=== PATIENT | female | born 1965 | race Caucasian/White ===

== ENCOUNTER → 2016-06-29 | Emergency (ER) | payer BC, SELFPAY ==
[~2016-06-29] VITALS: Ht 160 cm; Wt 97.5 kg
[~2016-06-29] MED LIST: CARA1TAB2 PO; IMIT50TA PO; ISOVUE-370 76% 100ML VIAL (Q9967) As Ordered ONE; KETOROLAC 30 MG/ML VIAL (J1885) IV ONE; MORPHINE 4 MG/ML 1ML SYRINGE IV ONE; ONDANSETRON 4MG/2ML VIAL (J2405) IV ONE; PRIL20CA9 PO; VALI5TAB PO; VALT500T PO
[2016-06-29 17:43] LABS: BASO % 0.2 % (0.0-1.0); EOS # 0.3 K/mm3 (0.0-0.50); EOS % 4.1 % (0.0-3.0); LARGE UNSTAINED CELL # 0.2 K/mm3 (0.0-0.4); LYMPH # 2.7 K/mm3 (1.5-4.5); LYMPH % 35.1 % (24.0-44.0); MEAN CORPUSCULAR HGB CONC 33.6 g/dl (32.0-36.5); MEAN CORPUSCULAR VOLUME 86.3 fl (80.0-96.0); MONO # 0.5 K/mm3 (0.0-0.8); MONO % 6.7 % (0.0-5.0); NEUTROPHILS # 3.6 K/mm3 (1.8-7.7); NEUTROPHILS % 50.8 % (36.0-66.0); PLATELET COUNT, AUTOMATED 199 k/mm3 (150-450); RED CELL DISTRIBUTION WIDTH 13.2 % (11.5-14.5); WHITE BLOOD COUNT 7.2 K/mm3 (4.0-10.0)
--- NOTE | 2016-06-29 18:03 | REP ---
PORTABLE CHEST: HISTORY: Chest pain. COMPARISON: None. The technique utilized in obtaining the radiograph has magnified the cardiac silhouette and accentuated the interstitial markings. The superior mediastinal structures are midline. The cardiac silhouette is unremarkable in size, shape, and position. The diaphragmatic surfaces of the lungs are regular, and the costophrenic angles are clear. The pulmonary davidson are clear. The imaged osseous structures are intact. IMPRESSION: There is no acute cardiopulmonary disease. Signed by Long Guerrero DO 07/01/2016 03:42 P
[2016-06-29 18:04] LABS: ANION GAP 8 MEQ/L (8-16); BLOOD UREA NITROGEN 11 MG/DL (7-18); CALCIUM LEVEL 8.6 MG/DL (8.5-10.1); CARBON DIOXIDE LEVEL 26 MEQ/L (21-32); CHLORIDE LEVEL 106 MEQ/L (98-107); CREATININE FOR GFR 0.68 MG/DL (0.55-1.02); GLOMERULAR FILTRATION RATE > 60.0 (>51); GLUCOSE, FASTING 105 MG/DL (70-105); POTASSIUM SERUM 3.7 MEQ/L (3.5-5.1); SODIUM LEVEL 140 MEQ/L (136-145)
--- NOTE | 2016-06-29 19:05 | REP ---
CT ANGIO CHEST: HISTORY: Chest pain. COMPARISON: None. CONTRAST: 100 mL [id number] There is excellent visualization of the pulmonary arterial vasculature. There are no focal filling defects present that would be considered consistent with pulmonary emboli. There are no pleural or pericardial effusions. There is no mediastinal or hilar adenopathy. The imaged upper abdomen and imaged osseous structures are within normal limits. Evaluation of the lung davidson shows a slightly asymmetric nodule in the superior segment of the left lower lobe which measures 1 cm. There are no other abnormal nodules, masses, or opacities. IMPRESSION: 1. No evidence of a pulmonary embolus. 2. Left upper lobe nodule as described above. According to the revised Marshal Society criteria, followup is recommended in three months with consideration made for PET/CT at this time due to the size of the lesion. The lesion represents category 4A nodule. Signed by Long Guerrero DO 07/01/2016 03:43 P
[2016-06-29 23:25] VITALS: BP 122/60
--- NOTE | 2016-06-30 08:40 | ECGEPIP ---
Stationary ECG Study [facility] - ED Test Date: 2016-06-29 Pat Name: HOLLEY CHENG Department: Room: - Gender: F [employer]: sachin : 1965 Requested By: Winnie Ramirez Order Number: [id number] Reading MD: Winnie Ramirez Measurements Intervals [place] Rate: 67 P: 31 MA: 153 QRS: 19 QRSD: 99 T: 30 QT: 382 QTc: 405 Interpretive Statements SINUS RHYTHM NSTTW ABNORMALITY NO PRIOR FOR COMPARISON Electronically Signed On 06-30-2016 8:40:22 EDT by Winnie Ramirez
--- NOTE | 2016-07-03 21:42 | ED PDOC ---
Post-Departure Follow-Up dr youssef faxed formal report of cta for fu Desmond Del Castillo MD Jul 03, 2016 21:42
== END | disposition home or self-care (01) ==
LOC: M ED 18:47
DX: R07.81 Pleurodynia (principal)
CPT/HCPCS: 71010; 71275; 80048; 82550; 82553; 85025; 93005; 93041; 94760; 96374; 96375; 96376; 99285; J1885; J2405; J3360; Q9967

== ENCOUNTER 2016-07-03 02:10 | Emergency (ER) | payer SELFPAY ==
[~2016-07-03] VITALS: Ht 160 cm; Wt 97.5 kg
[~2016-07-03 02:10] MED LIST changes: -CARA1TAB2 PO; -ISOVUE-370 76% 100ML VIAL (Q9967) As Ordered ONE; -KETOROLAC 30 MG/ML VIAL (J1885) IV ONE; -MORPHINE 4 MG/ML 1ML SYRINGE IV ONE; -ONDANSETRON 4MG/2ML VIAL (J2405) IV ONE; -PRIL20CA9 PO
[2016-07-03] MEDS ORDERED: NS 1,000 ML IV ONE (03:30)
[2016-07-03] MEDS ORDERED: ONDANSETRON 4MG/2ML VIAL (J2405) IV ONE (03:30)
[2016-07-03] MEDS ORDERED: HYDROmorphone HCL 1 MG/ML SYRINGE (J1170) IV ONE (03:30)
[2016-07-03 04:08] LABS: BASO % 0.2 % (0.0-1.0); EOS # 0.1 K/mm3 (0.0-0.50); EOS % 2.3 % (0.0-3.0); LARGE UNSTAINED CELL # 0.1 K/mm3 (0.0-0.4); LARGE UNSTAINED CELL % 2.4 % (0.0-4.0); LYMPH # 1.4 K/mm3 (1.5-4.5); LYMPH % 22.2 % (24.0-44.0); MEAN CORPUSCULAR HEMOGLOBIN 28.8 pg (27.0-33.0); MEAN CORPUSCULAR HGB CONC 33.1 g/dl (32.0-36.5); MEAN CORPUSCULAR VOLUME 87.2 fl (80.0-96.0); MONO # 0.4 K/mm3 (0.0-0.8); MONO % 6.6 % (0.0-5.0); NEUTROPHILS # 3.8 K/mm3 (1.8-7.7); NEUTROPHILS % 66.3 % (36.0-66.0); PLATELET COUNT, AUTOMATED 198 k/mm3 (150-450); RED CELL DISTRIBUTION WIDTH 13.2 % (11.5-14.5); WHITE BLOOD COUNT 5.7 K/mm3 (4.0-10.0)
--- NOTE | 2016-07-03 04:10 | REPUSA ---
CLINICAL HISTORY: Pain. TECHNIQUE: Realtime sonographic images were obtained in multiple projections. COMMENTS: The liver is demonstrates increased echogenicity compatible with fatty infiltration. No discrete hepatic mass is seen. There is no intra or extrahepatic biliary ductal dilatation. CBD measures 2 mm. The gallbladder is physiologically distended without evidence of calculi. The gallbladder wall is not thickened and ther e is no pericholecystic fluid. There is no abdominal ascites. The right kidney measures 11.7 cm, free of hydronephrosis, calculi, cysts or masses. IMPRESSION: Fatty liver. No acute pathology. Thank you for your kind referral of this patient.
[2016-07-03 04:37] LABS: ALBUMIN 3.5 GM/DL (3.2-5.2); ALBUMIN/GLOBULIN RATIO 1.03 (1.00-1.93); ALKALINE PHOSPHATASE 111 U/L (45-117); ALT/SGPT 39 U/L (12-78); AMYLASE 40 U/L (25-115); ANION GAP 9 MEQ/L (8-16); AST/SGOT 23 U/L (15-37); BILIRUBIN,DIRECT < 0.1 MG/DL (0.0-0.2); BILIRUBIN,TOTAL 0.2 MG/DL (0.2-1.0); BLOOD UREA NITROGEN 15 MG/DL (7-18); CALCIUM LEVEL 8.1 MG/DL (8.5-10.1); CARBON DIOXIDE LEVEL 26 MEQ/L (21-32); CHLORIDE LEVEL 108 MEQ/L (98-107); CREATININE FOR GFR 0.72 MG/DL (0.55-1.02); GLOMERULAR FILTRATION RATE > 60.0 (>51); GLUCOSE, FASTING 112 MG/DL (70-105); POTASSIUM SERUM 4.2 MEQ/L (3.5-5.1); SODIUM LEVEL 143 MEQ/L (136-145); TOTAL PROTEIN 6.9 GM/DL (6.4-8.2)
[2016-07-03] MEDS ORDERED: PRIL20CA9 PO (06:07)
[2016-07-03] MEDS ORDERED: CARA1TAB2 PO (06:07)
[2016-07-03 06:19] VITALS: BP 133/64
== END 2016-07-03 06:23 | disposition home or self-care (01) ==
LOC: M ED 04:19
DX: K29.00 Acute gastritis without bleeding (principal); K29.80 Duodenitis without bleeding; Z98.84 Bariatric surgery status
CPT/HCPCS: 76705; 80048; 80076; 81001; 82150; 83690; 85025; 87086; 96374; 96375; 99282; J1170; J2405